=== PATIENT | female | born 1950 | race Caucasian/White ===

== ENCOUNTER 2018-02-13 12:42 | Outpatient (CLI) | payer MEDICARE ==
--- NOTE | 2018-02-13 14:26 | RAD ---
CHEST TWO VIEWS: History: Dyspnea. FINDINGS: No comparison. Cardiac silhouette and pulmonary vasculature are unremarkable. Mediastinum is midline. Lungs are hype rinflated with flattening of each hemidiaphragm. No confluent airspace consolidation, pneumothorax, o r pleural fluid. IMPRESSION: No active cardiopulmonary abnormalities are demonstrated. POS: [facility]
== END 2018-02-13 12:43 | disposition home or self-care (01) ==
LOC: RAD 12:42
PROVIDERS: ATTEND Internal Medicine Critical Care Medicine
DX: R06.00 Dyspnea, unspecified (principal)
CPT/HCPCS: 71046